=== PATIENT | male | born 1950 | race Caucasian/White ===

== ENCOUNTER 2019-07-30 10:14 | Inpatient (IN) | payer OTHER ==
[~2019-07-30] VITALS: Ht 170.2 cm; Wt 79.7 kg
[2019-07-30 10:16] VITALS: BP 119/71
[2019-07-30] MEDS ORDERED: PROAIR HFA8.5 GM INH (10:52)
[2019-07-30] MEDS ORDERED: ASA81BEC PO (10:52)
[2019-07-30] MEDS ORDERED: ATORVASTATIN CA80 MG PO (10:53)
[2019-07-30] MEDS ORDERED: BUDESONIDE-FO10.2 GM INH (10:54)
[2019-07-30] MEDS ORDERED: FOLIC ACID1 MG PO (10:55)
[2019-07-30] MEDS ORDERED: DEPAKOTE500 MG PO (10:55)
[2019-07-30] MEDS ORDERED: HYDROXYZINE PAM25 M1 PO (10:56)
[2019-07-30] MEDS ORDERED: LOPRESSOR50 MG PO (10:57)
[2019-07-30] MEDS ORDERED: MULTIVITAMINS1 EAC7 PO (11:01)
[2019-07-30 11:02] LABS: ABSOLUTE NEUTROPHILS 3.1 thou/uL (1.4-8.2); BASOPHILS 1.1 % (0.0-2.0); EOSINOPHILS 2.8 % (0.0-3.0); HEMATOCRIT 43.9 % (42.0-52.0); LYMPHOCYTES 30.8 % (24.0-44.0); MCH 31.3 pg (26.0-34.0); MCHC 34.2 g/dL (28.0-37.0); MCV 91.7 fL (80.0-100.0); MONOCYTES 10.6 % (1.0-8.0); PLATELET COUNT 131 thou/uL (150-400); POLYS 54.7 % (36.0-66.0); RBC 4.79 mil/uL (4.50-6.00); RDW 14.4 % (10.5-14.5); WBC 5.7 thou/uL (4.0-11.0)
[2019-07-30] MEDS ORDERED: PANTOPRAZOLE SO40 M1 PO (11:02)
[2019-07-30] MEDS ORDERED: VITAMIN B-1100 M2 PO (11:03)
[2019-07-30] MEDS ORDERED: PRAZOSIN 1 MG CA1 M1 PO (11:03)
[2019-07-30] MEDS ORDERED: QUETIAPINE FUM200 M1 PO (11:03)
[2019-07-30] MEDS ORDERED: TRAZODONE HCL100 MG PO (11:04)
[2019-07-30] MEDS ORDERED: TYLENOL EXTRA500 MG PO (11:05)
[2019-07-30] MEDS ORDERED: ONDANSETRON HCL4 M2 PO (11:06)
[2019-07-30 11:11] LABS: CALCIUM 8.8 mg/dL (8.5-10.1); CREATININE 1.1 mg/dL (0.7-1.3); POTASSIUM 3.9 mmol/L (3.5-5.1)
[2019-07-30 11:18] LABS: ALBUMIN 3.4 g/dL (3.4-5.0); TOTAL BILIRUBIN 0.5 mg/dL (0.2-1.0); TOTAL PROTEIN 7.1 g/dL (6.4-8.2)
--- NOTE | 2019-07-30 12:15 | NUR ---
DR WELLS CALLED TO ENSURE PT IS ABLE TO GIVE A URIUNE SPECIMEN. ADVISED TO STRAIGHT-CATH PT IF UNWILLING OR UNABLE. CANNOT DETERMINE ELIGIBILITY FOR PSYCH UNIT UNTIL SPECIMEN IS COLLECTED TO R/O UTI
[2019-07-30 12:32] LABS: URINE BILIRUBIN NEGATIVE (Negative); URINE BLOOD NEGATIVE (Negative); URINE CLARITY CLEAR; URINE COLOR YELLOW; URINE GLUCOSE-RANDOM* NEGATIVE (Negative); URINE KETONES TRACE (Negative); URINE LEUKOCYTES-REFLEX NEGATIVE (Negative); URINE NITRITE-REFLEX NEGATIVE (Negative); URINE PROTEIN (DIPSTICK) NEGATIVE (Negative); URINE UROBILINOGEN >= 8.0 E.U./dl (0.2-1.0)
[2019-07-30 12:40] LABS: AMP/METHAMP Negative (Negative); BARBITURATES Negative (Negative); BENZODIAZEPINES POSITIVE (Negative); COCAINE Negative (Negative); METHADONE Negative (Negative); OPIATES Negative (Negative); PCP Negative (Negative)
--- NOTE | 2019-07-30 12:51 | NUR ---
ATTEMPTED TO CALL REPORT - WILL CALL ME BACK WHEN THE NURSE "FINISHES ROUNDS"
[2019-07-30 13:23] VITALS: BP 107/51
[2019-07-30 13:40] VITALS: BP 139/66
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
[2019-07-30 19:00] VITALS: BP 101/64
--- NOTE | 2019-07-31 05:04 | NUR ---
Assumed care of pt @ 1900. Pt calm et cooperative with pleasant demeanor this shift. Took medications whole without difficulty. Isolated in room most of shift. Very pleasant with this nurse et stated to have a "blessed day" after every encounter. VSWNL. Health assessment with no abnormalities noted at present time. Denies SI/HI et states that he is aware that is why he is here but he is not feeling suicidal at the present time. Did not socialize with peers or roommate this shift. Currently resting in bed with eyes closed. Will continue to monitor per protocol.
[2019-07-31 07:33] VITALS: BP 105/61
[2019-07-31 08:20] VITALS: BP 105/61
--- NOTE | 2019-07-31 08:29 | NUR ---
PT SITTING OUT IN DINING ROOM. PT STATED HE HAS ANXIETY OF 8 ON 1-10 SCALE. PT DENIES ANY PAIN. PT TOOK MEDS WITHOUT ANY ISSUES. NO SIGNS OF TREMORS OR HEADACHE. PT WANTING TO USE THE PHONE AFTER BREAKFAST.
--- NOTE | 2019-07-31 14:57 | NUR ---
ADM LORAZEPAM 1MG PO FOR ANXIETY OF 8 ON 1-10 SCALE.
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
[2019-07-31 19:39] VITALS: BP 143/81
--- NOTE | 2019-07-31 23:08 | NUR ---
ASSUMED CARE OF PATIENT AT APPROXIMATELY 1915, PATIENT IN DAY ROOM MINIMALLY INTERACTING WITH OTHER PEERS. UPON ONE TO ONE PT OBSERVED WITH A BLUNTED AFFECT, AND WOULD MINIMALLY VERBALIZE WITH THIS NURSE. PATIENT THEN WENT TO HIS ROOM AND STOOD IN THE DOOR WAY. THIS NURSE ADMINISTERED HS MEDICATION TO PATIENT AND PATIENT STATED "ITS ABOUT DAMN TIME." HE BECAME DEMANDING IN NEEDS AT THIS TIME, BUT WAS PROVIDED. AT THIS TIME PATIENT IS IN BED WITH EYES CLOSED, RR EVEN AND UNLABORED, NO S/S OF DISTRESS. PT DID NOT REPORT MEDICAL CONCERNS. NURSING WILL MAINTAIN ALL PRECAUTIONS TO ENSURE SAFETY AT ALL TIMES.
--- NOTE | 2019-08-01 02:32 | NUR ---
PATIENT AWOKE AND CAME TO NURSES STATION. HE STATES HE CAN'T SLEEP AND WANTS SOMETHING TO HELP SLEEP. HE STATES HIS BACK WAS ACHING SOME TOO. TYLENOL 650MG WAS SUGGESTED AND PATIENT SAID NO THAT HE NEEDS SOMETHING FOR SLEEP MORE. WENT AHEAD AND GAVE PATIENT TRAZADONE 50MG WITH TYLENOL 650MG PO FOR BACK PAIN AND SLEEP. 07/02 ON PAIN. WHEN I TOOK THE MEDS TO THE PATIENT HE STATES THAT HE IS HAVING REOCCURRING NIGHTMARES AGAIN. I ASKED HIM IF THEY WERE SOMETHING THAT HAPPENED TO HIM IN THE PAST OR SOMETHING TOTALLY DIFFERENT. HE STATED, "THEY ARE JUST VERY BLOODY NIGHTMARES." HE DID NOT WANT TO TALK ABOUT IT BEYOND THAT. PATIENT TOOK PILLS WHOLE WITH WATER AND LAID BACK DOWN TO SLEEP. HE WAS PLEASANT AND COOOPERATIVE AND APPEARRED CALM. CONTINUING TO MONITOR.
--- NOTE | 2019-08-01 04:24 | NUR ---
Patient up again at this time. Patient ran out of room saying "It isn't working". After further assessment, patient states that he is able to fall asleep but once he falls asleep, he is having bloody nightmares of people being killed. Patient appears anxious, states that he is scared. Patient was not willing to elaborate any further on nightmares.
--- NOTE | 2019-08-01 04:39 | NUR ---
PT GIVEN OLANZAPINE 2.5MG PO WITH WATER. PATIENT LAID BACK DOWN TO TRY AN SLEEP. PT IS IRRITABLE FROM BROKEN SLEEP AND THE BLOODY NIGHTMARES HE IS HAVING. HE DID ASK WHAT THE MED WAS AND IS HOPING IT WILL WORK FOR HIS NIGHT GARCIA.
[2019-08-01 07:38] VITALS: BP 93/51
[2019-08-01 08:20] VITALS: BP 93/51
--- NOTE | 2019-08-01 08:39 | EKG ---
[facility] [place] [address] ELECTROCARDIOGRAM REPORT Name: NAVDEEP HERNANDEZ Room #: [facility] ADM IN M.R.#: [id number] Admission: 07/30/19 Attend Phys: Chong Aguillon DO Discharge: Date of : 50 Report #: [id number] THIS REPORT FOR: cc: FAM - Family physician unknown FAM - Family physician unknown Óscar Mckeon MD [facility] THIS REPORT FOR: //name// [facility] ED Test Date: 2019-07-30 Test Time: 10:34:54 Pat Name: NAVDEEP HERNANDEZ Department: Room: [facility] Gender: M Farmworker Grain: KHOA : 1950 Requested By: Raul Harris Order Number: [id number] MD: Óscar Mckeon Measurements Intervals [place] Rate: 72 P: 49 NE: 184 QRS: -30 QRSD: 118 T: 61 QT: 412 QTc: 451 Interpretive Statements Sinus rhythm Incomplete RBBB and LAFB No previous ECG available for comparison Electronically Signed On 08-01-2019 8:37:12 CDT by Óscar Mckeon [email or web address] <ELECTRONICALLY SIGNED> By: Óscar Mckeon MD, FACC 08/01/19 0837 1034 1034 Óscar Mckeon MD, [facility] /EPI
--- NOTE | 2019-08-01 12:19 | NUR ---
LOUIS left message with lead auditor [facility] [phone] asking for a return call to discuss patient's history and a copy of patient's medical record. Dr. Aguillon left message for patient's PA binder caser asking for return call to discuss patient's history.
--- NOTE | 2019-08-01 18:53 | NUR ---
COURTNEY HAS BEEN VERY CORGAL WITH STAFF AND DR. VALDEZ RECIEVED ORDERS FROM TO HELP WITH SLEEP TONIGHT.
--- NOTE | 2019-08-01 19:15 | NUR ---
Care of patient assumed at 1915. Patient is in and out of day room. Calm and ccoperative with assessment. States that [facility] sent him here because they messed up all of his meds and didn't know how to fix it. Rates anxiety and depression 7/10 while laughing and joking. Rates lower back pain 7/10 on numeric scale, while PAINAD scale scores 0. Does not request any pain meds. A/O x4. Reports last BM this evening (07/31). HS, LS, BS all WNL. Compliant with HS meds and retires to bed shortly after.
[2019-08-01 19:49] VITALS: BP 138/85
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
[2019-08-02 07:40] VITALS: BP 118/71
--- NOTE | 2019-08-02 11:15 | NUR ---
LOUIS called [facility] to discuss the d/c for 08/03. Left a VM
--- NOTE | 2019-08-02 11:19 | NUR ---
LOUIS faxed updates to [facility]
--- NOTE | 2019-08-02 11:33 | NUR ---
LOUIS called and confimred with the COVID 19 HS Jagruti that this pt will be visitied by Анна VARGAS at 1pm on 08/02.
--- NOTE | 2019-08-02 14:48 | NUR ---
Dimitris called a second time to admssions at [facility] and left another VM. DIMITRIS also tried the coordiantor [phone] but unable to leave a VM because her VM box is full.
--- NOTE | 2019-08-02 14:58 | NUR ---
Up ambulating in unit with slow, steady gait. Alert and orientated X4. States he is here d/t not liking [place]. Irritated and frustrated with roommate, states he kept him up all night and he couldn't sleep. Denies SI/HI. Calm and compliant later in day. Breath sounds clear t/o with occassional slight expiratory wheeze. Reg HR auscultated. Color pink with brisk capillary refill and palpable peripheral pulses. No edema noted. Independent with voiding. Active bowel sounds over soft, rounded abdomen. Stated last BM was yesterday but then came to me later in AM stating he had 3 loose stools in 3 mins. Encouraged to drink fluids and gave cup of H2O. Denied additional stools at this writing. Currently sitting in day room watching TV with peers. No s/o distress.
[2019-08-02 19:32] VITALS: BP 93/48
--- NOTE | 2019-08-02 20:05 | NUR ---
[facility]ONNE[facility] CARE ON 08/01/19 @ 2019, IN BED AT BEGINNING OF SHIFT. REPORTS WATERY DIARRHEA TODAY. DENIES FOOD ALLERGIES. SAYS THE HOSPITAL FOOD GIVES HIM DIARRHEA. DENIES SI AND HI. REPORTS HE IS IN THE HOSPITAL BECUSE OF SUICIDAL THOUGHTS. AND BECAUSE HE DID NOT LIKE [facility]. DENIES H, A&V. DENIES PAIN. A&O X 3, REPORTS THAT HE HIMSELF IS THE PRESIDENT.
[2019-08-03 02:17] VITALS: BP 93/48
[2019-08-03 07:40] VITALS: BP 120/65
--- NOTE | 2019-08-03 09:48 | NUR ---
The lab called with COVID test results; the results were negative.
--- NOTE | 2019-08-03 13:59 | NUR ---
DIMITRIS spoke with admissions this AM and reported that pt was ready to d/c. Dimitris then faxed the pt and ot notes iwth the neg COVID 19 test results. Later admissions from [place] called and they are now pending auth for pt to return. It is possible this could be today. Later Dimitris set up a DOXY.ME conference with Анна VARGAS and this pt instread of the visit that was set for today at 1pm. Pt visited with Анна and then Dimitris was able to report that pt was likely d/c today or maybe tomorrow.
--- NOTE | 2019-08-03 14:50 | NUR ---
Dimitris received a VM that the auth was not completed yet and there might be an issue with a later d/c. Dimitris checked with Dr navarrete and he advised that d/c can be first thing tomorrow am.DIMITRIS relayed this sonam VM to Claudy at [facility] and nursing.
[2019-08-03 20:52] VITALS: BP 138/74
--- NOTE | 2019-08-03 23:29 | NUR ---
Assumed care on 08/03/19 @ 1900, pleasant affect, greeted this nurse with a wave and a smile. A&Ox3-4. Cooperated with assessment, reports looking forward to leaving the hospital tomorrow. Took meds whole with water. reports to staff that she only wants to see him through a window at the facility to which he is discharging. patient reorts diarrhea, although reports it is not as bad today. Trazadone 150 provided @ 20:45. Denies pain. In bed eyes closed, respirations even and unlabored, bed in low position.
[2019-08-04 01:38] VITALS: BP 138/74
[2019-08-04 07:15] VITALS: BP 118/64
[2019-08-04] MEDS ORDERED: TRAZODONE 150150 M1 PO (09:57)
--- NOTE | 2019-08-04 10:29 | NUR ---
DIMITRIS spoke with Claudy with admisions at [facility] and it was reported that they were trying to skill him again but insurance was denying it. DIMITRIS advised that pt will have to go back there today and their business office will have to complete the [place] medicaid change if needed. They are aware that this pt was expected to be with them unitl his court date regarding his guardianship in 4 months. Dimitris setup transportation for 12pm. Reported this to nursing.
--- NOTE | 2019-08-04 10:53 | NUR ---
Dimitris received a sonya from the PA with [facility] and she confimred she recieved the d/c summary and granted permission for this pt to back to [facility]
--- NOTE | 2019-08-04 12:50 | NUR ---
0715 Up ambulating in unit without s/o distress. Regular, steady gait. Alert and orientated X 4. Unhappy with plan to transfer back to [place]. Denies SI/HI and states that he knows he made a mistake in claiming SI that got him transferred. Breath sounds clear t/o with good aeration. No s/o resp distress. Reg HR auscultated. Color pink with brisk capillary refill and palpable peripheral pulses. No s/o edema. Independent with voiding. Active bowel sounds over soft, rounded abdomen. No s/o pressure sores or lesions. 1120 Report called to [facility]. Also called public junior systems administrator, talked with case mgr. Aware of pending transfer and consent to transfer. 1210 Reviewed discharge instructions with pt which he signed. No s/o distress. Transported per WC to transport van.
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
== END 2019-08-04 12:10 | DRG 882 ==
LOC: ER 10:14 → EROBS 12:40 → SBH 12:40
PROVIDERS: Emergency Medicine; ADMIT Psychiatry & Neurology Psychiatry; ATTEND Psychiatry & Neurology Psychiatry
DX: F43.24 Adjustment disorder with disturbance of conduct (principal); F01.50 Vascular dementia, unspecified severity, without behavioral disturbance, psychotic disturbance, mood disturbance, and anxiety; R45.851 Suicidal ideations; I10 Essential (primary) hypertension; J44.9 Chronic obstructive pulmonary disease, unspecified; F32.9 Major depressive disorder, single episode, unspecified; E78.5 Hyperlipidemia, unspecified; K21.9 Gastro-esophageal reflux disease without esophagitis; F10.20 Alcohol dependence, uncomplicated; F19.90 Other psychoactive substance use, unspecified, uncomplicated; Y90.9 Presence of alcohol in blood, level not specified; Z79.82 Long term (current) use of aspirin; Z79.899 Other long term (current) drug therapy; Z88.8 Allergy status to other drugs, medicaments and biological substances; Z03.818 Encounter for observation for suspected exposure to other biological agents ruled out
CPT/HCPCS: 10880